=== PATIENT | female | born 1995 | race American Indian/Alaskan Native ===

== ENCOUNTER 2020-05-14 14:29 | Emergency (ER) | payer SELFPAY ==
[2020-05-14] MEDS ORDERED: IBUPROFEN 800 MG TAB PO ONE (17:47)
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
[2020-05-14 18:39] VITALS: BP 150/80
== END 2020-05-14 18:40 | disposition home or self-care (01) ==
LOC: ED 14:29
DX: S39.012A Strain of muscle, fascia and tendon of lower back, initial encounter (principal); Z98.890 Other specified postprocedural states; V49.49XA Driver injured in collision with other motor vehicles in traffic accident, initial encounter; Y93.89 Activity, other specified; Y92.488 Other paved roadways as the place of occurrence of the external cause; Y99.8 Other external cause status
CPT/HCPCS: 72100; 99283

== ENCOUNTER 2021-03-06 13:11 | Day surgery (SDC) | payer MEDICAID ==
[2021-03-06] MEDS ORDERED: PHENYLEPHRINE/NS 1,000 MCG/10 ML SYRINGE (OR USE) IV ONE (14:04)
[2021-03-06] MEDS ORDERED: ePHEDrine SULFATE 50 MG/1 ML INJ ONE (14:06)
[2021-03-06] MEDS ORDERED: propofoL 200 MG/20 ML VIAL IV ONE (14:08)
[2021-03-06] MEDS ORDERED: SUCCINYLCHOLINE CHLORIDE 200 MG/10 ML INJ MDV ONE (14:08)
[2021-03-06] MEDS ORDERED: LIDOCAINE MPF (2%) 20 MG/1 ML VIAL 5 ML ONE (14:08)
[2021-03-06] MEDS ORDERED: fentaNYL 100 MCG/2 ML INJ ONE (14:08)
[2021-03-06] MEDS ORDERED: GLYCOPYRROLATE 0.4 MG/2 ML INJ ONE (14:08)
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
--- NOTE | 2021-03-06 14:43 | Anesthesia Day of Surgery ---
Anesthesia Day of Surgery - Day of Surgery Patient Examined: Yes Patient H&P Reviewed: Yes Patient is NPO: Yes (since 7am today) Beta Blockers: No
--- NOTE | 2021-03-06 15:23 | History and Physical Report ---
History of Present Illness Date of examination: 03/06/21 Date of admission: 03/06/2021 Chief complaint: IUFD diagnosed at [facility] History of present illness: UFD diagnosed at [facility] . Past History Past Medical History: no pertinent history Medications and Allergies Allergies Allergy/AdvReac Type Severity Reaction Status Date / Time No Known Allergies Allergy Verified 03/06/21 14:09 Review of Systems All systems: negative - Physical Exam Breasts: Positive: normal Lungs: Positive: Normal air movement Abdomen: Positive: normal appearance, soft Vulva: both: normal Vagina: Positive: normal moisture. Negative: discharge Cervix: Negative: lesion, discharge Uterus: Positive: normal size, enlarged Adnexa: both: normal Deep Tendon Reflex Grade: Normal +2 Results All other labs normal. Assessment and Plan - Patient Problems (1) IUFD (intrauterine ) Current Visit: Yes Status: Acute Plan to address problem: Patient opted to have a D&E to remove products of conception and duly consented.
[2021-03-06] MEDS ORDERED: MIDAZOLAM 2 MG/2 ML INJ ONE (15:35)
[2021-03-06] MEDS ORDERED: HYDROmorphone 1 MG/1 ML INJ ONE (15:46)
[2021-03-06] MEDS ORDERED: ESMOLOL 100 MG/10 ML INJ IV ONE (15:47)
[2021-03-06] MEDS ORDERED: dexAMETHasone 20 MG/5 ML VIAL ONE (15:49)
[2021-03-06] MEDS ORDERED: ONDANSETRON 4 MG/2 ML INJ ONE (15:49)
[2021-03-06] MEDS ORDERED: SODIUM CHLORIDE 0.9% IRR 1,000 ML BOTTLE IR ONE (15:51)
[2021-03-06] MEDS ORDERED: ONDANSETRON 4 MG/2 ML INJ IV PRN (15:59)
[2021-03-06] MEDS ORDERED: MEPERIDINE 25 MG/1 ML INJ IV PRN (15:59)
[2021-03-06] MEDS ORDERED: METHYLERGONOVINE MALEATE 0.2 MG/ML VIAL IM ONE (16:01)
[2021-03-06 16:09] LABS: Hematocrit 34.8 % (30.3-42.9); Hemoglobin 11.4 gm/dl (10.1-14.3); Mean Corpuscular HGB Conc 33 % (30-34); Mean Corpuscular Volume 76 fl (79-97); Platelet Count 332 K/mm3 (140-440); Red Blood Count 4.57 M/mm3 (3.65-5.03); Red Cell Distribution Width 17.4 % (13.2-15.2)
[2021-03-06 16:25] LABS: Blood Urea Nitrogen 5 mg/dL (7-17); Calcium 9.6 mg/dL (8.4-10.2); Hemolysis Index 0
[2021-03-06 16:30] LABS: BUN/Creatinine Ratio 8
[2021-03-06] MEDS ORDERED: KETOROLAC 30 MG/1 ML INJ IV ONE (16:49)
--- NOTE | 2021-03-06 16:54 | Operative Report ---
Operative Report Operative Report: Date of surgery: March 06, 2021 Pre Op Diagnosis: Intrauterine Post Op Diagnosis: Same. Procedures: Suction evacuation of the uterus Surgeon: Shanice Wu MD Anesthesiologist: MD Pat Anesthesia: IV sedation EBL: 400 cc or less. Complications: None Findings: Vulva and vagina were normal. The uterus was about 14 weeks size, anteverted. Procedure in details: The patient was taken to the operating room, she was placed in the straight supine position and given general anesthesia. Patient was then put in the lithotomy position and prepped in the vulva vagina and abdomen. The drapes were placed. A timeout was done. With the go ahead from the facilities flight check pilot, a bimanual examination of the pelvis was done. A red rubber catheter was used to empty the bladder. The sponge forcep was used to stabilize the anterior lip of the cervix. The cervix was dilated to [place] 43. Suction D and E was used to empty the uterus of the products of conception. The tissues removed were examined on a side table in the operating room and all body parts were accounted for. The products of conception retrieved were sent to the pathology lab for tissue examination. There was no active bleeding at the end of suctioning. The vagina and instruments were withdrawn. All sponges and instruments were accounted for. There were no complications. The estimated blood loss was less than 50 mL. The patient tolerated the procedure well and was transferred to the recovery room in very good condition.
[2021-03-06] MEDS ORDERED: KETOROLAC 30 MG/1 ML INJ ONE (17:00)
[2021-03-06] MEDS: HYDROmorphone 1 MG/1 ML INJ IV PRN ×2 (17:01→17:11)
--- NOTE | 2021-03-06 17:13 | Post Anesthesia Evaluation ---
- Post Anesthesia Evaluation Patient Participated: Yes Airway Patent: Yes Stable Respiratory Function: Yes Nausea/Vomiting: No Temp > 96.8F: Yes Pain Manageable: Yes Adequeate Hydration: Yes Anesthesia Complications: No Block Receding Appropriately: Not Applicable Patient on Ventilator: No Other Comments: pt a+o x3. no distress noted. vitals stable.
[2021-03-06 17:32] VITALS: BP 116/66
== END 2021-03-06 18:05 | disposition home or self-care (01) ==
LOC: TRG 13:11 → OR 13:11 → EDSTATUS 15:30 → OR 18:05
PROVIDERS: ATTEND Obstetrics & Gynecology
DX: O02.1 Missed abortion (principal); Z3A.14 14 weeks gestation of pregnancy; E66.9 Obesity, unspecified; Z79.899 Other long term (current) drug therapy; Z68.39 Body mass index [BMI] 39.0-39.9, adult
CPT/HCPCS: 36415; 59820; 80048; 85027; 86850; 86900; 86901; 88305; J0330; J1100; J1170; J1885; J2210; J2250; J2370; J2405; J2704; J3010